=== PATIENT | female | born 1975 | race Caucasian/White ===

== ENCOUNTER 2019-05-12 07:47 | Day surgery (SDC) | payer OTHER ==
[~2019-05-12] VITALS: Ht 180.3 cm; Wt 68.6 kg
[2019-05-12] MEDS ORDERED: TAMOXIFEN CITRATE (08:40)
[2019-05-12] MEDS ORDERED: albuterol (08:40)
[2019-05-12 08:41] VITALS: Ht 180.3 cm; Wt 68.6 kg
[2019-05-12] MEDS ORDERED: PROPOFOL 20 ML ONE (09:10)
[2019-05-12] MEDS ORDERED: LIDOCAINE 2% (SDV) 5 ML INJ ONE (09:10)
[2019-05-12] MEDS ORDERED: FENTAnyl 50 MCG/ML VIAL ONE (09:10)
--- NOTE | 2019-05-12 09:10 | PREAC ---
Date/Time of Note Date/Time of Note DATE: 05/12/19 TIME: 09:07 Anesthesia Eval and Record Evaluation Time Pre-Procedure Interview DATE: 05/12/19 TIME: 09:07 Age 43 Sex female NPO: 8 hrs Preoperative diagnosis gerd, creening for polyps and colon cancer Planned procedure rgd, colonoscopy Past Medical History Past Medical History: Includes Pulm: Asthma Neuro: Peripheral neuropathy, Other (sjogrens ) Musculoskeletal: Other (breast cancer ) GI: GERD Surgery & Anesthesia Issues No known issue Meds Anticoagulation: No Beta Walter within 24 hr: No Reason Beta Walter not given: Pt. not on B-Walter Reported Medications [albuterol] No Conflict Check 05/12/19 [tamoxifen citrate] No Conflict Check 05/12/19 Meds reviewed: Yes Allergies Coded Allergies: No Known Allergies (Verified Allergy, Unknown, 08/05/18) Allergies Reviewed: Yes Labs/Studies Labs Reviewed: Reviewed by anesthesiologist test: Negative Pre-procedure Exam Airway: Adequate mouth opening, Adequate thyromental dist Mallampati: Mallampati II Teeth: Normal Lung: Normal Heart: Normal ASA Physical Status ASA physical status: 3 Emergency: None Pre-operative Attestations Prior to commencing anesthesia and surgery, the patient was re-evaluated, there was verification of: *The patient's identity *The results of appropriate recent lab work and preoperative vital signs *The above evaluation not changing prior to induction *Anesthetic plan, risk benefits, alternative and complications discussed with patient/family; questions answered; patient/family understands, accepts and wishes to proceed. GETACHEW BRYANT DO May 12, 2019 09:10
[2019-05-12] MEDS ORDERED: ETOMIDATE 20 MG INJ ONE (09:11)
[2019-05-12 09:13] VITALS: BP 141/71; PULSE 59; RESP 18
--- NOTE | 2019-05-12 09:47 | PAC ---
Date/Time of Note Date/Time of Note DATE: 05/12/19 TIME: 09:47 Post-Anesthesia Notes Post-Anesthesia Note Last documented vital signs 105/62 77 100 98.2 18 Activity: WNL Respiratory function: WNL Cardiovascular function: WNL Mental status: Baseline Pain reasonably controlled: Yes Hydration appropriate: Yes Nausea/Vomiting absent: Yes GETACHEW BRYANT DO May 12, 2019 09:47
[2019-05-12] MEDS ORDERED: MIDAZOLAM 1 MG/ML 2 ML INJ ONE (09:49)
[2019-05-12] MEDS ORDERED: ATROPINE 1 MG/10 ML SYRINGE ONE (10:25)
[2019-05-12 10:28] VITALS: BP 127/65; PULSE 54; RESP 24
== END 2019-05-12 13:17 | disposition home or self-care (01) ==
LOC: GIL 07:47
PROVIDERS: ATTEND Internal Medicine Gastroenterology
DX: K64.9 Unspecified hemorrhoids (principal); K20.8 Other esophagitis; K29.70 Gastritis, unspecified, without bleeding; K29.80 Duodenitis without bleeding; J45.909 Unspecified asthma, uncomplicated
CPT/HCPCS: 43239; 45380; 88305; 88312; J0461; J2250; J3010; Z7610

== ENCOUNTER 2019-07-04 17:32 | Emergency (ER) | payer OTHER ==
[~2019-07-04] VITALS: Ht 180.3 cm; Wt 66.4 kg
[~2019-07-04 17:32] MED LIST: CEPH-443 PO; DICY10CA40 PO; IBUP800T48 PO; TAMOXIFEN CITRATE; albuterol
[2019-07-04 17:38] VITALS: Ht 180.3 cm; Wt 66.4 kg
[2019-07-04] MEDS ORDERED: morphine 4 MG/ML VIAL IV STA (18:32)
[2019-07-04] MEDS ORDERED: SOD CHLORIDE 0.9% 1,000 ML IV STA ×2 (18:32→19:11)
[2019-07-04] MEDS ORDERED: ONDANSETRON 4 MG INJ IV STA ×2 (18:32→19:11)
[2019-07-04] MEDS ORDERED: METOCLOPRAMIDE 10 MG INJ IV ONE (19:00)
[2019-07-04] MEDS ORDERED: LORAZEPAM 2 MG INJ IV ONE (19:00)
[2019-07-04] MEDS ORDERED: HYDROmorphONE 1 MG/ML SYG IV STA (19:11)
[2019-07-04] MEDS ORDERED: IOHEXOL 300MG/ML 150 ML BTL ONE (19:36)
[2019-07-04] MEDS ORDERED: SOD CHLORIDE 0.9% 100 ML ONE (19:36)
--- NOTE | 2019-07-04 22:24 | ERD ---
ER Documentation Chief Complaint Chief Complaint lower abdominal pain x 2 days HPI This is a 33-year-old female with a past medical history of remote breast carcinoma status post bilateral mastectomy on tamoxifen that presents to the emergency department complaining of a gradual onset of severe lower abdominal pain. She stated was a cramping-like sensation. Prior to the cramping she did experience loose watery stools. She is on oral supplements of magnesium. She denies any recent travel. No fevers or shaking or chills. No recent hospitalizations. No weight loss. She stated that the pain has progressively worsened to a cramping-like sensation which is now prominent in the right lower quadrant. She states she took extra strength Tylenol with no improvement of her pain. She has had similar pain when she menstruates but is not currently menstruating at this time and also indicates that the pain usually improves with Tylenol. Given that the pain did not improve she came to the emergency department to be further evaluated. She does have a left ovarian cyst which she states she follows up with her gynecological oncologist. She denies any hematuria. Mild frequency but no urgency or dysuria. ROS All systems reviewed and are negative except as per history of present illness. Medications Home Meds Active Scripts Ibuprofen* (Motrin*) 800 Mg Tab, 800 MG PO Q6H PRN for PAIN AND OR ELEVATED TEMP, #30 TAB Prov:LAVERNE PORTILLO MD 07/04/19 Cephalexin* (Keflex*) 500 Mg Capsule, 500 MG PO Q6, #40 CAP Prov:LAVERNE PORTILLO MD 07/04/19 Reported Medications [albuterol] No Conflict Check 05/12/19 [tamoxifen citrate] No Conflict Check 05/12/19 Allergies Allergies: Coded Allergies: No Known Allergies (Verified Allergy, Unknown, 08/05/18) PMhx/Soc History of Surgery: Yes (BILATERAL MASTECTOMY, TONSILLECTOMY, BREAST RECONSTRUCTION) Anesthesia Reaction: No Hx Neurological Disorder: No Hx Respiratory Disorders: Yes (ASTHMA) Hx Cardiac Disorders: No Hx Psychiatric Problems: No Hx Miscellaneous Medical Probl: No Hx Alcohol Use: No Hx Substance Use: No Hx Tobacco Use: No Smoking Status: Never smoker Physical Exam Vitals Vital Signs Date Temp Pulse Resp B/P (MAP) Pulse Ox O2 O2 Flow FiO2 Time Delivery Rate 07/04/19 89 16 132/69 98 Room Air 20:00 (90) 07/04/19 100.0 95 18 134/89 99 17:38 (104) Physical Exam Constitutional:Well-developed. Well-nourished. Patient tearful and appeared to be in a significant amount discomfort secondary to pain HEENT:Normocephalic. Atraumatic.Pupils were equal round reactive to light. Moist mucous membranes.No tonsillar exudates. Neck: No nuchal rigidity. No lymphadenopathy. No posterior cervical spine tenderness or step-offs. Respiratory: Not using accessory muscles of respiration.Lungs were clear to auscultation bilaterally. No rhonchi. No rales. No wheezing. Cardiovascular: Regular rate regular rhythm.No murmurs. No rubs were appreciated.S1, S2 normal. Distal pulses are palpable 2+ bilaterally. GI: Abdomen was soft. Tenderness in the right lower quadrant nonspecific over McBurney's point. Psoas sign negative. Obturator sign negative. Non Distended. No pulsatile abdominal masses or bruits. No rebound. No guarding. Bowel sounds were present and normal. Muscle skeletal: Full range of motion of both the upper and lower extremities bilaterally.Normal muscle tone.No assymetrical calf tenderness or swelling. Skin: No petechia, no purpura. No lesions on the palms or the soles of the feet. No maculopapular rash. NEURO: Patient was alert, awake, orientated x3.No facial droop. Gait observed and normal with no ataxia.Speech had regular rate and rhythm. No focal neurological deficits. Result Diagram: 07/04/19183407/04/19 1835 Results 24 hrs Laboratory Tests Test 07/04/19 18:21 07/04/19 18:34 07/04/19 18:35 Urine Color YELLOW Urine Clarity CLOUDY Urine pH 8.0 Urine Specific [place] 1.004 Urine Ketones NEGATIVE mg/dL Urine Nitrite NEGATIVE mg/dL Urine Bilirubin NEGATIVE mg/dL Urine Urobilinogen NEGATIVE mg/dL Urine Leukocyte Esterase NEGATIVE [place]/ul Urine Microscopic RBC 1 /HPF Urine Microscopic WBC 12 /HPF Urine Squamous Epithelial Cells MANY /HPF Urine Bacteria MODERATE /HPF Urine Hemoglobin NEGATIVE mg/dL Urine Glucose NEGATIVE mg/dL Urine Total Protein NEGATIVE mg/dl POC Beta HCG, Qualitative NEGATIVE White Blood Count 12.3 10^3/ul Red Blood Count 4.03 10^6/ul Hemoglobin 12.3 g/dl Hematocrit 37.4 % Mean Corpuscular Volume 92.8 fl Mean Corpuscular Hemoglobin 30.5 pg Mean Corpuscular 32.9 g/dl Hemoglobin Concent Red Cell Distribution Width 12.6 % Platelet Count 250 10^3/UL Mean Platelet Volume 10.2 fl Immature Granulocytes % 0.600 % Neutrophils % 85.0 % Lymphocytes % 8.9 % Monocytes % 4.5 % Eosinophils % 0.6 % Basophils % 0.4 % Nucleated Red Blood Cells % 0.0 /100WBC Immature Granulocytes # 0.070 10^3/ul Neutrophils # 10.5 10^3/ul Lymphocytes # 1.1 10^3/ul Monocytes # 0.6 10^3/ul Eosinophils # 0.1 10^3/ul Basophils # 0.1 10^3/ul Nucleated Red Blood Cells # 0.0 10^3/ul Prothrombin Time 13.5 Sec Prothrombin Time Ratio 1.1 INR International 1.02 Normalized Ratio Activated Partial Thromboplast 28.2 Sec Time Sodium Level 139 mmol/L Potassium Level 4.0 mmol/L Chloride Level 101 mmol/L Carbon Dioxide Level 29 mmol/L Anion Gap 9 Blood Urea Nitrogen 11 mg/dl Creatinine 0.87 mg/dl Est Glomerular Filtrat > 60 mL/min Rate mL/min Glucose Level 97 mg/dl Calcium Level 9.7 mg/dl Total Bilirubin 0.5 mg/dl Direct Bilirubin 0.00 mg/dl Indirect Bilirubin 0.5 mg/dl Aspartate Amino Transf (AST/SGOT) 28 IU/L Alanine 13 IU/L Aminotransferase (ALT/SGPT) Alkaline Phosphatase 51 IU/L Total Protein 7.7 g/dl Albumin 4.5 g/dl Globulin 3.20 g/dl Albumin/Globulin Ratio 1.40 Amylase Level 139 U/L Lipase 134 U/L Serum HCG, Qualitative NEGATIVE Current Medications Medications Dose Sig/Theresa Start Time Status Last (Trade) Ordered Route PRN Stop Time Admin Dose Reason Admin Sodium 1,000 ml @ Q1H STAT 07/04/19 DC 07/04/19 Chloride 1,000 mls/hr IV 18:32 07/04/19 18:45 19:31 Morphine 4 mg ONCE STAT 07/04/19 DC 07/04/19 Sulfate IV 18:32 07/04/19 18:45 (morphine) 18:35 Ondansetron 4 mg ONCE STAT 07/04/19 DC 07/04/19 HCl (Zofran IV 18:32 07/04/19 18:45 Inj) 18:35 10 mg ONCE ONCE 07/04/19 DC 07/04/19 Metoclopramid IV 19:00 07/04/19 19:18 e HCl 19:01 (Reglan) Lorazepam 1 mg ONCE ONCE 07/04/19 DC 07/04/19 (Ativan) IV 19:00 07/04/19 19:18 19:01 Sodium 1,000 ml @ Q1H STAT 07/04/19 DC 07/04/19 Chloride 1,000 mls/hr IV 19:11 07/04/19 19:28 20:10 1 mg ONCE STAT 07/04/19 DC 07/04/19 Hydromorphone IV 19:11 07/04/19 19:28 HCl 19:12 (Dilaudid) Ondansetron 4 mg ONCE STAT 07/04/19 DC HCl (Zofran IV 19:11 07/04/19 Inj) 19:12 IV Flush 10 ml STK-MED 07/04/19 DC (NS 10 ml) ONCE .ROUTE 19:36 07/04/19 19:37 Sodium 100 ml @ ud STK-MED 07/04/19 DC Chloride ONCE .ROUTE 19:36 07/04/19 19:37 Iohexol 150 ml STK-MED 07/04/19 DC (Omnipaque ONCE .ROUTE 19:36 07/04/19 300mg/ ml) 19:37 Procedures/MDM This patient presented to the emergency department with abdominal pain and was seen and evaluated by myself. My differential diagnosis included but was not limited to abdominal aortic aneurysm, appendicitis, pancreatitis, perforated peptic ulcer, perforated viscus, Boerhaave's syndrome or visceral pain such as diverticulitis, DKA, esophagitis, hepatitis or bowel obstruction. The patient was placed on a environmental monitoring specialist, continuous pulse oximetry, and IV access was established by nursing staff. The patient was given intravenous morphine and Zofran with no improvement of her symptoms. The patient was very tearful and again appeared to be in a significant discomfort. She was given Ativan to help relieve her symptoms of anxiousness which thought to be secondary to her pain. She also received further dose of analgesic medication which included IV Dilaudid. At this time the patient appears much more comfortable and her pain had improved. She was given a liter bolus of normal saline. Patient no severe electrolyte abnormalities. The patient had pyuria of 12 white blood cells however negative leukocytes negative nitrates. I obtained a CT scan the patient's abdomen is no evidence of appendicitis. There is no evidence of obstructive uropathy or diverticulitis. Observation Note: Time: 4 hours Family Hx: No Hypertension Evaluation: Multiple exams showed improving symptoms and no evidence of peritoneal signs or surgical abdomen. I indicated the patient did not have an exact etiology into her symptoms but stated it could be a result of a viral etiology given that she did experience mild diarrhea prior to the onset of her symptoms. The patient was discharged home in fair condition. They were instructed to return to the emergency department at any time if there was any worsening of their condition. The patient stated they would follow up with their PCP in the next 24-48 hours to initiate a suitable medication regimen under the care of their PCP as well as to allow their PCP to monitor any drug reactions. The patient was discharged home with prescriptions after they gave informed consent to the new medication. They were also fully informed by myself on the adverse effects and adverse drug interactions in order to provide adequate safeguards to prevent possible adverse reactions to medications. Departure Diagnosis: Primary Impression: Abdominal colic Additional Impression: Urinary tract infection Condition: Fair Patient Instructions: Urinary Tract Infections in Women, Pyelonephritis, Female (Adult) LAVERNE PORTILLO MD Jul 04, 2019 22:24
[2019-07-04 22:44] VITALS: BP 135/82; PULSE 89; RESP 16
== END 2019-07-04 22:44 | disposition home or self-care (01) ==
LOC: E/R 17:32
DX: N39.0 Urinary tract infection, site not specified (principal); J45.909 Unspecified asthma, uncomplicated
CPT/HCPCS: 74177; 80053; 81001; 81025; 82150; 83690; 84703; 85025; 85610; 85730; 96374; 96375; J1170; J2060; J2270; J2405; J2765; J7030; Q9967; Z7502; Z7610